=== PATIENT | male | born 1935 | race Caucasian/White ===

== ENCOUNTER 2016-08-13 21:02 | Observation (INO) ==
--- NOTE | 2016-08-13 21:34 | Emergency Department Note ---
Disposition Clinical Impression: General weakness Syncope Qualifiers: Syncope type: unspecified Qualified Code(s): R55 - Syncope and collapse Disposition: Admitted As Inpatient Condition: Good Referrals: NO,PCP [Primary Care Provider] - Forms: ED Satisfaction Letter Time of Disposition: 00:28 Weakness HPI - General Chief complaint: ED Weakness Stated complaint: increased weakness, fall Time Seen by Provider: 08/13/16 21:30 Source: patient Mode of arrival: ambulatory Limitations: no limitations Nursing Notes Reviewed: Yes Vital Signs Reviewed: Yes - History of Present Illness HPI Narrative: 81-year-old white male complaining of generalized weakness for the last 3 days. He was actually seen here on 08/11/16 by me for some abdominal discomfort. He was diagnosed with biliary colic. He states since being discharged she has just felt generally weak and been laying around. He denies dizziness. He has had no ongoing abdominal pain. He denies any chest pain. He states that today he has been incontinent of urine 3 times. He states he was in the bathroom and fell to the floor. He is not sure if he passed out, he does not remember falling. He denies any injuries from the fall. He states he was too weak to get up and had to have the neighbor's helping. Pt Subjective Complaint: generalized weakness/fatigue Onset (ago): day(s) (3) Duration: constant Location: generalized Migration: none Pain Severity: none Pain Scale: 0 Context: recent illness Associated symptoms: Reports: other (Incontinence of urine) - Related Data Home Medications Medication Instructions Recorded Confirmed Aspirin 81 mg PO DAILY 06/20/15 06/20/15 Metoprolol Tartrate 50 mg PO 06/20/15 Omeprazole [Omeprazole] 1 PO DAILY 06/20/15 Potassium Citrate [Urocit-K] 1 PO BID 06/20/15 Valsartan/Hydrochlorothiazide 1 PO DAILY 06/20/15 [Diovan Hct 160-25 mg Tablet] amLODIPine [Norvasc] 10 mg PO DAILY 06/20/15 08/11/16 metFORMIN [Glucophage] 500 mg PO BIDWM 06/20/15 08/11/16 Calcium Citrate-Vit D3 Tablet 1 PO BID 07/24/16 Previous Rx's Medication Instructions Recorded Dicyclomine [Bentyl] 10 - 20 mg PO QID PRN #30 capsule 08/11/16 Ondansetron ODT [Zofran ODT] 4 mg SL Q6HR PRN #8 tab.rapdis 08/11/16 Allergies Allergy/AdvReac Type Severity Reaction Status Date / Time No Known Allergies Allergy Verified 06/20/15 10:25 All systems ED: reviewed and negative except as stated. Constitutional: Denies: fever, chills Eyes: Denies: vision change ENT ED: Denies: ear pain, throat pain Cardiovascular: Denies: chest pain, palpitations Respiratory: Denies: cough, dyspnea Gastrointestinal: Denies: abdominal pain, nausea, vomiting, diarrhea Genitourinary: Denies: urgency, dysuria Musculoskeletal: Denies: back pain Neurological: Reports: weakness. Denies: headache, numbness, paresthesias Past Medical History - Past Medical History Medical history: Reports: diabetes, GERD, hyperlipidemia, hypertension, kidney stones Surgical history: Reports: other (Kidney stone extractions, tonsillectomy) Psychiatric history: Reports: no psych history - Social History Smoking Status: Never smoker Smokeless Tobacco Status: No Alcohol use: Reports: none Drug use: Reports: none Physical Exam - General Limitations: no limitations General appearance: alert, in no apparent distress - Head Head exam: atraumatic, normocephalic - Eye Eye exam: Present: PERRL, EOMI. Absent: scleral icterus, conjunctival injection - ENT ENT exam: normal oropharynx, mucous membranes moist, TM's normal bilaterally - Neck Neck exam: Present: normal inspection, full ROM, trachea midline. Absent: lymphadenopathy - Respiratory Respiratory exam: Present: normal lung sounds bilaterally. Absent: respiratory distress, wheezes - Cardiovascular Cardiovascular exam: Present: regular rate, normal rhythm, normal heart sounds - Abdominal Exam Abdominal exam: Present: soft, Non-Tender. Absent: organomegaly, mass - Extremities Exam Extremities exam: Present: normal inspection, full ROM, normal capillary refill. Absent: tenderness - Back Exam Back exam: Present: normal inspection. Absent: CVA tenderness (R), CVA tenderness (L) - Neurological Exam Neurological exam: Present: alert, oriented X3, CN II-XII intact, reflexes normal. Absent: motor sensory deficit - Psychiatric Psychiatric exam: Present: normal affect, normal mood - Skin Skin exam: Present: warm, dry, intact, normal color Course - Reevaluation(s) Reevaluation #1: Discussed with Dr. Steele. He accepts the patient for admission. Time: 00:27 Vital Signs Temperature 97.7 F 08/13/16 21:07 Pulse Rate 79 08/13/16 21:07 Respiratory Rate 18 08/13/16 21:07 Blood Pressure 127/74 08/13/16 21:07 O2 Sat by Pulse Oximetry 96 08/13/16 21:07 Temperature 97.7 F 08/13/16 22:09 Pulse Rate 76 08/13/16 22:45 Respiratory Rate 16 08/13/16 22:45 Blood Pressure 133/74 08/13/16 22:45 O2 Sat by Pulse Oximetry 96 08/13/16 22:45 Oxygen Delivery Oxygen Delivery Room Air Weakness - MDM Narrative Medical decision making narrative: Differential includes but is not limited to anemia, dehydration, hypokalemia, hyperkalemia, myocardial infarction, arrhythmia, CVA, urinary tract infection. Based on his history of sounds if he had a syncopal episode. The etiology of his syncope is not clear. The etiology of his generalized weakness is not clear. He has no focal findings. No acute findings on his head CT. There are no electrolyte abnormalities to explain his symptoms. No focus of infection to explain his symptoms. - Lab Data Result diagrams: 08/13/16 21:41 08/13/16 21:41 Lab Results 08/13/16 08/13/16 08/13/16 Range/Units 21:41 21:41 21:41 WBC 9.8 (4.3-11.1) K/mcL RBC 3.95 L (4.19-5.50) M/mcL Hgb 11.8 L (12.9-16.9) g/dL Hct 34.9 L (37.5-50.1) % MCV 88.4 (83.0-100.0) fL MCH 29.9 (28.0-33.3) pg MCHC 33.8 (31.6-35.5) g/dL RDW 13.2 (11.5-14.5) % Plt Count 212 (140-400) K/mcL MPV 9.5 (9.4-12.4) fL Immature Gran % 0.4 (0-4) % Seg Neutrophils % 74.1 % Lymphocytes % 11.0 % Monocytes % 14.4 % Eosinophils % 0.0 % Basophils % 0.1 % Neutrophils # 7.3 (1.6-8.9) K/mcL Lymphocytes # 1.1 (0.6-4.6) K/mcL Monocytes # 1.4 H (0.0-1.3) K/mcL Eosinophils # 0.0 (0.0-0.6) K/mcL Basophils # 0.0 (0.0-0.2) K/mcL PT 14.4 H (9.4-12.1) Seconds INR 1.3 VBG Lactic Acid (0.5-2.2) mmol/L Sodium 137 (136-145) mEq/L Potassium 3.5 (3.5-4.5) mEq/L Chloride 98 (98-109) mEq/L Carbon Dioxide 28 (19-29) mEq/L BUN 19 (8-26) mg/dL Creatinine 0.95 (0.72-1.25) mg/dL Est GFR ( Amer) > 60 (> 60) Est GFR (Non-Af Amer) > 60 (> 60) BUN/Creatinine Ratio 20 (6-26) Glucose 188 H (70-99) mg/dL Calculated Osmolality 291 (280-300) Calcium 9.1 (8.6-10.8) mg/dL Total Bilirubin 0.9 D (0.2-1.2) mg/dL AST 16 (5-34) Units/L ALT 16 (0-55) Units/L Alkaline Phosphatase 54 (38-126) Units/L Troponin I (0-0.03) ng/mL Serum Total Protein 6.9 (6.0-8.3) g/dL Albumin 3.0 L D (3.5-5.0) g/dL Globulin 3.9 H (2.4-3.5) g/dL Albumin/Globulin Ratio 0.8 L (1.1-2.2) Urine Color (Yellow) Urine Clarity (Clear) Urine pH (5.0-8.0) pH Units Ur Specific [place] (1.010-1.025) Urine Protein (Neg-Trace) mg/dL Urine Glucose (UA) (Normal) mg/dL Urine Ketones (Negative) mg/dL Urine Blood (Negative) Urine Nitrite (Negative) Urine Bilirubin (Negative) Urine Urobilinogen (Normal) mg/dL Ur Leukocyte Esterase (Negative) Urine Microscopic RBC (0-3) per hpf Urine Microscopic WBC (0-3) per hpf Ur Squamous Epith Cells (None-Few) per lpf Urine Bacteria (None-Few) per hpf Hyaline Casts (None-Few) per lpf Granular Casts (None Seen) per lpf Urine Mucus (Few) Ur Culture Indicated? (NO) 08/13/16 08/13/16 08/13/16 Range/Units 21:41 21:41 21:59 WBC (4.3-11.1) K/mcL RBC (4.19-5.50) M/mcL Hgb (12.9-16.9) g/dL Hct (37.5-50.1) % MCV (83.0-100.0) fL MCH (28.0-33.3) pg MCHC (31.6-35.5) g/dL RDW (11.5-14.5) % Plt Count (140-400) K/mcL MPV (9.4-12.4) fL Immature Gran % (0-4) % Seg Neutrophils % % Lymphocytes % % Monocytes % % Eosinophils % % Basophils % % Neutrophils # (1.6-8.9) K/mcL Lymphocytes # (0.6-4.6) K/mcL Monocytes # (0.0-1.3) K/mcL Eosinophils # (0.0-0.6) K/mcL Basophils # (0.0-0.2) K/mcL PT (9.4-12.1) Seconds INR VBG Lactic Acid 1.3 (0.5-2.2) mmol/L Sodium (136-145) mEq/L Potassium (3.5-4.5) mEq/L Chloride (98-109) mEq/L Carbon Dioxide (19-29) mEq/L BUN (8-26) mg/dL Creatinine (0.72-1.25) mg/dL Est GFR ( Amer) (> 60) Est GFR (Non-Af Amer) (> 60) BUN/Creatinine Ratio (6-26) Glucose (70-99) mg/dL Calculated Osmolality (280-300) Calcium (8.6-10.8) mg/dL Total Bilirubin (0.2-1.2) mg/dL AST (5-34) Units/L ALT (0-55) Units/L Alkaline Phosphatase (38-126) Units/L Troponin I 0.02 (0-0.03) ng/mL Serum Total Protein (6.0-8.3) g/dL Albumin (3.5-5.0) g/dL Globulin (2.4-3.5) g/dL Albumin/Globulin Ratio (1.1-2.2) Urine Color Yellow (Yellow) Urine Clarity Clear (Clear) Urine pH 5.5 (5.0-8.0) pH Units Ur Specific [place] 1.010 (1.010-1.025) Urine Protein 30 H (Neg-Trace) mg/dL Urine Glucose (UA) 100 H (Normal) mg/dL Urine Ketones Negative (Negative) mg/dL Urine Blood Trace-lysed H (Negative) Urine Nitrite Negative (Negative) Urine Bilirubin Negative (Negative) Urine Urobilinogen Normal (Normal) mg/dL Ur Leukocyte Esterase Negative (Negative) Urine Microscopic RBC 0-3 (0-3) per hpf Urine Microscopic WBC 0-3 (0-3) per hpf Ur Squamous Epith Cells Few (None-Few) per lpf Urine Bacteria Few (None-Few) per hpf Hyaline Casts Few (None-Few) per lpf Granular Casts Few H (None Seen) per lpf Urine Mucus Few (Few) Ur Culture Indicated? NO (NO)
[2016-08-13 21:48] LABS: Basophils % 0.1 %; Hematocrit 34.9 % (37.5-50.1); Hemoglobin 11.8 g/dL (12.9-16.9); Immature Granulocytes % 0.4 % (0-4); Lymphocytes # 1.1 K/mcL (0.6-4.6); Mean Corpuscular HGB Conc 33.8 g/dL (31.6-35.5); Mean Corpuscular Hemoglobin 29.9 pg (28.0-33.3); Mean Corpuscular Volume 88.4 fL (83.0-100.0); Mean Platelet Volume 9.5 fL (9.4-12.4); Monocytes # 1.4 K/mcL (0.0-1.3); Monocytes % 14.4 %; Neutrophils # 7.3 K/mcL (1.6-8.9); Platelet Count 212 K/mcL (140-400); Red Blood Count 3.95 M/mcL (4.19-5.50); Red Cell Distribution Width 13.2 % (11.5-14.5); Segmented Neutrophils % 74.1 %
[2016-08-13 21:53] LABS: INR 1.3; Prothrombin Time 14.4 Seconds (9.4-12.1)
[2016-08-13 22:05] LABS: Bilirubin,Urine Negative (Negative); Blood,Urine Trace-lysed (Negative); Clarity,Urine Clear (Clear); Color,Urine Yellow (Yellow); Glucose,Urine (UA) 100 mg/dL (Normal); Ketones,Urine Negative (Negative); Leukocyte Esterase,Urine Negative (Negative); Nitrite,Urine Negative (Negative); PH,Urine 5.5 pH Units (5.0-8.0); Protein,Urine 30 mg/dL (Neg-Trace); Urobilinogen,Urine Normal (Normal)
[2016-08-13 22:06] LABS: Alanine Aminotransferase 16 Units/L (0-55); Albumin/Globulin Ratio 0.8 (1.1-2.2); Alkaline Phosphatase 54 Units/L (38-126); Aspartate Amino Transferase 16 Units/L (5-34); BUN/Creatinine Ratio 20 (6-26); Bilirubin,Total 0.9 mg/dL (0.2-1.2); Blood Urea Nitrogen 19 mg/dL (8-26); Calcium 9.1 mg/dL (8.6-10.8); Carbon Dioxide 28 mEq/L (19-29); Chloride 98 mEq/L (98-109); Globulin 3.9 g/dL (2.4-3.5); Glucose 188 mg/dL (70-99); Osmolality,Calculated 291 (280-300); Potassium 3.5 mEq/L (3.5-4.5); Sodium 137 mEq/L (136-145); Total Protein 6.9 g/dL (6.0-8.3); eGFR For African Americans > 60 (> 60); eGFR For Non-African Americans > 60 (> 60)
[2016-08-13 22:14] LABS: Bacteria,Urine Few per hpf (None-Few); Granular Casts,Urine Few per lpf (None Seen); Hyaline Casts,Urine Few per lpf (None-Few); Mucus,Urine Few (Few); RBC,Urine 0-3 per hpf (0-3); Squamous Epithelial Cell,Urine Few per lpf (None-Few); WBC,Urine 0-3 per hpf (0-3)
[2016-08-14] MEDS ORDERED: Ibuprofen 200 MG TABLET PO PRN (02:08)
[2016-08-14] MEDS ORDERED: Naloxone 0.4 MG/ML INJ IVP PRN (02:08)
[2016-08-14] MEDS ORDERED: Ibuprofen 400 MG TABLET PO PRN (08:17)
[2016-08-14] MEDS ORDERED: Potassium Citrate 10 MEQ TABLET.ER PO SCH (09:00)
[2016-08-14] MEDS ORDERED: [UNRECOGNIZED DRUG - OTHER] PO SCH (09:00)
[2016-08-14] MEDS ORDERED: UBIDECARENONE 50 MG PO SCH (09:00)
[2016-08-14] MEDS ORDERED: amLODIPine 5 MG TABLET PO SCH (09:00)
[2016-08-14] MEDS ORDERED: hydroCHLOROthiazide 25 MG TABLET PO SCH ×2 (09:00→15:10)
[2016-08-14] MEDS: *HR* Metformin 500 MG TABLET PO SCH (09:49)
[2016-08-14] MEDS: Valsartan 160 MG TABLET PO SCH (09:49)
[2016-08-14] MEDS: Aspirin 81 MG TAB.CHEW PO SCH (09:50)
[2016-08-14] MEDS: Cholecalciferol (D-3) 1,000 UNIT TABLET PO SCH (11:29)
--- NOTE | 2016-08-14 15:15 | Internal Med History&Physical ---
Date of Encounter: 08/14/16 Time of Encounter: 14:40 Assessment and Plan (1) Syncope Current visit: Yes Status: Acute Etiology not obvious. Consider vasovagal from attempted bowel movement. We will continue telemetry monitoring. Qualifiers: Syncope type: unspecified Qualified Code(s): R55 - Syncope and collapse (2) Anemia Current visit: Yes Status: Acute We will order anemia testing in a.m. Qualifiers: Anemia type: unspecified type Qualified Code(s): D64.9 - Anemia, unspecified (3) General weakness Current visit: Yes Status: Acute Will hold amlodipine and recheck orthostatic vital signs in a.m. Will give IV fluids with supplemental potassium and recheck labs in a.m. (4) Hypertension Current visit: Yes Status: Chronic As above Qualifiers: Hypertension type: essential hypertension Qualified Code(s): I10 - Essential (primary) hypertension Internal Medicine - H&P: HPI Chief complaint: Syncope and fall Admitted From: Home Plans for Post Hospital Care: Home History of present illness: Mr. Sanchez is a 81 year old male who came to emergency room after he had an unwitnessed syncopal episode in the bathroom at home. He states he was sitting on the toilet and lost consciousness and fell to the floor. He did not injure himself. He states he was unconscious for only a few seconds. There was some loss of urinary incontinence. He was found by his who called her neighbor to help him off the floor. He was brought to emergency room and evaluated and admitted to [facility] for ongoing care needs. He denies previous syncopal episodes. He denies any sensation of lightheadedness dizziness tachycardia etc. prior to the fall. He does not have orthostatic symptoms on arising from a seated position. He has history of hypertension but denies [place] heart failure angina DVT or pulmonary embolus. His neurologic history is negative for strokes or seizures. He states approximately 6 months ago he had an episode where he felt he was "in a fog". The episode lasted only a few minutes and then resolved. He has had previous similar episodes like this over the past few years. Past Med Surg Social Fam HX - Past Medical History Medical history: diabetes, GERD, hyperlipidemia, hypertension, kidney stones Psychiatric history: no psych history - Past Surgical History Surgical History: other - Social History Smoking Status: Never smoker Smokeless Tobacco Status: No Alcohol use: none Drug use: none Internal Medicine - H&P: Meds Aspirin 81 mg PO DAILY 06/20/15 [History] Omeprazole [Omeprazole] 20 mg PO DAILY 06/20/15 [History] Potassium Citrate [Urocit-K] 10 mcg PO BID 06/20/15 [History] Valsartan/Hydrochlorothiazide [Diovan Hct 160-25 mg Tablet] 1 tab PO DAILY 06/19 [History] amLODIPine [Norvasc] 10 mg PO DAILY 06/20/15 [History] metFORMIN [Glucophage] 500 mg PO QAM 06/20/15 [History] Calcium Citrate-Vit D3 Tablet 1 tab PO BID 07/24/16 [History] Ibuprofen [Advil] 200 mg PO QAM PRN 08/14/16 [History] Ubidecarenone [Coq10] 50 mg PO QAM 08/14/16 [History] metFORMIN [Glucophage] 1,000 mg PO HS 08/14/16 [History] Allergies No Known Allergies Allergy (Verified 06/20/15 10:25) All Systems PM: A 10-system review of systems was performed and is negative for pertinent findings except as documented above in the HPI. Review of systems: Gen.: He states his weight has decreased approximately 9 pounds in the past few months, intentionally Cardiovascular: As per history of present illness Respiratory: He smoked for a few years in early adulthood. He denies chronic lung disease. GI: Denies disorders of his liver gallbladder or exocrine pancreas : He has had kidney stones in the past. He denies other kidney bladder prostate disorders Neurologic: He denies large distribution strokes or seizures Endocrine: He was diagnosed with DM 2 approximately 2011. He denies thyroid disease. He states he has hyperlipidemia but could not tolerate atorvastatin Hematology/oncology: Denies blood disorders cancers or anemia Psychiatric: He denies anxiety depression other mental health issues Musk skeletal: He has DJD but denies gout or other bone joint or muscle disorders. - Constitutional Vitals: Temp Pulse Resp BP Pulse Ox 98.3 F 77 17 119/69 97 08/14/16 14:38 08/14/16 14:38 08/14/16 14:38 08/14/16 14:38 08/14/16 14:38 Exam: Gen.: He is a well-developed well-nourished male who appears in no acute distress at present time. HEENT: Head is atraumatic and normocephalic. Eyes: EOMI. There is no scleral icterus. Mouth: Mucosa is moist. Neck: Supple and nontender. There is no thyromegaly or adenopathy noted. Heart: Regular without murmurs gallops or ectopics Lungs: No wheezes or crackles are heard. Abdomen: Soft and nontender. No masses or guarding are noted. Extremities: There is no cyanosis edema or clubbing noted. Dorsalis pedis and posterior tibial pulses are trace palpable bilaterally. Neurologic: Mental status: He is talkative and a good historian. Cranial nerves : Smile is symmetric. Forehead wrinkles bilaterally. Tongue protrudes midline. EOMI. Motor: There is no pronator drift. Cerebellar: Finger to nose is intact bilaterally. Skin: Warm and dry Internal Med - H&P Results - Labs CBC & Chem 7: 08/13/16 21:41 08/13/16 21:41
[2016-08-14] MEDS ORDERED: *HR* Metformin 500 MG TABLET PO SCH (17:00)
[2016-08-14] MEDS: 0.45 % Sodium Chloride w/KCl 20 MEQ/1,000 ML MLS IVC SCH (17:56)
[2016-08-15] MEDS ORDERED: Acetaminophen 325 MG TABLET PO PRN (01:01)
[2016-08-15] MEDS ORDERED: Azithromycin 500 MG in D5% in Water 250 ML IVPB ONE (02:00)
[2016-08-15 02:09] LABS: Hematocrit 32.9 % (37.5-50.1); Hemoglobin 11.3 g/dL (12.9-16.9); Immature Granulocytes % 0.7 % (0-4); Lymphocytes # 1.2 K/mcL (0.6-4.6); Lymphocytes % 11.5 %; Mean Corpuscular HGB Conc 34.3 g/dL (31.6-35.5); Mean Corpuscular Hemoglobin 29.8 pg (28.0-33.3); Mean Corpuscular Volume 86.8 fL (83.0-100.0); Mean Platelet Volume 10.8 fL (9.4-12.4); Monocytes # 1.1 K/mcL (0.0-1.3); Monocytes % 10.2 %; Neutrophils # 8.3 K/mcL (1.6-8.9); Platelet Count 215 K/mcL (140-400); Red Blood Count 3.79 M/mcL (4.19-5.50); Red Cell Distribution Width 13.4 % (11.5-14.5); Segmented Neutrophils % 77.6 %
[2016-08-15 02:28] LABS: BUN/Creatinine Ratio 25 (6-26); Blood Urea Nitrogen 20 mg/dL (8-26); Calcium 8.7 mg/dL (8.6-10.8); Carbon Dioxide 25 mEq/L (19-29); Chloride 99 mEq/L (98-109); Glucose 146 mg/dL (70-99); Magnesium 1.8 mg/dL (1.6-2.6); Osmolality,Calculated 287 (280-300); Potassium 3.3 mEq/L (3.5-4.5); Sodium 136 mEq/L (136-145); eGFR For African Americans > 60 (> 60); eGFR For Non-African Americans > 60 (> 60)
[2016-08-15] MEDS: Aspirin 81 MG TAB.CHEW PO SCH (09:23)
[2016-08-15] MEDS: Cholecalciferol (D-3) 1,000 UNIT TABLET PO SCH (09:23)
[2016-08-15] MEDS: Valsartan 160 MG TABLET PO SCH (09:23)
[2016-08-15] MEDS: *HR* Metformin 500 MG TABLET PO SCH (09:24)
[2016-08-15] MEDS: 0.45 % Sodium Chloride w/KCl 20 MEQ/1,000 ML MLS IVC SCH (09:32)
--- NOTE | 2016-08-15 09:42 | Discharge Summary ---
Date of Encounter: 08/15/16 Time of Encounter: 09:30 - Discharge Diagnosis (1) Syncope Priority: Primary Status: Acute Qualifiers: Syncope type: unspecified Qualified Code(s): R55 - Syncope and collapse (2) Anemia Priority: Secondary Status: Acute Qualifiers: Anemia type: unspecified type Qualified Code(s): D64.9 - Anemia, unspecified (3) General weakness Priority: Secondary Status: Acute (4) Hypertension Priority: Secondary Status: Chronic Qualifiers: Hypertension type: essential hypertension Qualified Code(s): I10 - Essential (primary) hypertension - Discharge Medications Prescriptions: Potassium Chloride 10 meq PO BID #20 tab.er.prt Home Medications: Aspirin 81 mg PO DAILY 06/20/15 [History] Omeprazole 20 mg PO DAILY 06/20/15 [History] Potassium Citrate [Urocit-K] 10 mcg PO BID 06/20/15 [History] Valsartan/Hydrochlorothiazide [Diovan Hct 160-25 mg Tablet] 1 tab PO DAILY 06/19 [History] metFORMIN [Glucophage] 500 mg PO QAM 06/20/15 [History] Calcium Citrate-Vit D3 Tablet 1 tab PO BID 07/24/16 [History] Ibuprofen [Advil] 200 mg PO QAM PRN 08/14/16 [History] Ubidecarenone [Coq10] 50 mg PO QAM 08/14/16 [History] metFORMIN [Glucophage] 1,000 mg PO HS 08/14/16 [History] Potassium Chloride 10 meq PO BID #20 tab.er.prt 08/15/16 [Rx] Allergies/Adverse Reactions: Allergies No Known Allergies Allergy (Verified 06/20/15 10:25) Date of admission: 08/14/16 01:36 Primary care physician: Jean Russo M.D. Consults: 08/14/16 03:18 Consult to Pastoral Services [CONS] Routine Comment: Patient states if they are making rounds. - Patient Status Disposition: Home, Self-Care Condition: Good Functional capacity at discharge: independent ambulation Overall status at discharge: patient is progressing back to baseline - Discharge Instructions Follow Up With: Jean Russo Jr, MD [Partnered Physician] - 1 week - Diet and Activity Activity: resume usual activities as tolerated Diet: advance to your usual diet Hospital course: Mr. Sanchez is a 81 year old male who came to emergency room after he had an unwitnessed syncopal episode in the bathroom at home. He states he was sitting on the toilet and lost consciousness and fell to the floor. He did not injure himself. He states he was unconscious for only a few seconds. There was some loss of urinary incontinence. He was found by his who called her neighbor to help him off the floor. He was brought to emergency room and evaluated and admitted to [facility] for ongoing care needs. Initial orders were written by the emergency room physician. I saw him on August 14 and performed a history and physical. He had no further syncopal or near syncopal episodes. Orthostatic vital signs showed blood pressure decreased from 163/79 lying to 133/77 standing. I held his Norvasc and this will continue to be withheld at discharge. His PCP can monitor his pressure and further adjust medications as needed. He had a fever spike to 102.3 the director of early childhood hours of August 15. Temperature returned to normal range and he felt stable for discharge home later the morning of August 15. I explained to him the etiology of his syncope at home was not determined with certainty but it could have been vasovagal since he admits he was straining to have a BM at the time of syncope. Recommended he use stool softener and other medications as needed to avoid straining. Withholding amlodipine may also lessen constipation. His potassium level was 3.3 on the day of discharge. He will continue potassium citrate as prescribed of the urologist but I also gave him KCl 10 mg tablets twice a day for additional potassium. His PCP can monitor this. Anemia testing was ordered with results pending at the time of discharge. He will be discharged home and follow with his PCP within one week. - Time Spent with Patient Total time spent providing and/or coordinating discharge services: - Constitutional Vitals: Temp Pulse Resp BP Pulse Ox 98.8 F 80 18 129/60 98 08/15/16 07:00 08/15/16 07:00 08/15/16 07:00 08/15/16 07:00 08/15/16 07:00
[2016-08-15 09:51] VITALS: BP 151/72
--- NOTE | 2016-08-15 11:13 | Physician Discharge Referral ---
Home Health/Hosp Referral Info Transfer to: Home Health Attending Provider: Cedric Provider in Charge Post Discharge: PCP (Jean Russo M.D.) - Diagnosis (1) Syncope Priority: Primary Status: Acute (2) Anemia Priority: Secondary Status: Acute (3) General weakness Priority: Secondary Status: Acute (4) Hypertension Priority: Secondary Status: Chronic - Respiratory Orders Smoking Cessation: Smoking cessation has been advised. For more information, call the [place] Tobacco Quit Line at 3-175-HVFH-NOW. - Diet/Nutrition Diet/Nutrition Orders: Regular - Activity Activity Orders: Ambulate - Services Needed Following services are medically necessary services: Nursing, Home Health Aide, Physical Therapy, Occupational Therapy - Transfer Medications Prescriptions: Potassium Chloride 10 meq PO BID #20 tab.er.prt Home Medications: Aspirin 81 mg PO DAILY 06/20/15 [History] Omeprazole 20 mg PO DAILY 06/20/15 [History] Potassium Citrate [Urocit-K] 10 mcg PO BID 06/20/15 [History] Valsartan/Hydrochlorothiazide [Diovan Hct 160-25 mg Tablet] 1 tab PO DAILY 06/19 [History] metFORMIN [Glucophage] 500 mg PO QAM 06/20/15 [History] Calcium Citrate-Vit D3 Tablet 1 tab PO BID 07/24/16 [History] Ibuprofen [Advil] 200 mg PO QAM PRN 08/14/16 [History] Ubidecarenone [Coq10] 50 mg PO QAM 08/14/16 [History] metFORMIN [Glucophage] 1,000 mg PO HS 08/14/16 [History] Potassium Chloride 10 meq PO BID #20 tab.er.prt 08/15/16 [Rx] Allergies/Adverse Reactions: Allergies No Known Allergies Allergy (Verified 06/20/15 10:25) Certification: Further, I certify that my clinical findings support that this patient is homebound (i.e. absences from home require considerable and taxing effort and are for medical reasons or confucianism services or infrequently or short duration when for other reasons) because: Homebound Reason: Leaving home requires considerable and taxing effort due to condition (Walker assistance needed for safe ambulation.) Attestation: My signature below is to certify that this patient is under my care and that I, or nurse practitioner, or a physician's housekeeper and laundry assistant working with me, has a face-to -face encounter with this patient.
--- NOTE | 2016-08-16 11:45 | Electrocardiograph Report ---
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
== END 2016-08-15 12:39 | disposition home or self-care (01) ==
LOC: INPPIK 21:02 → EMEROOPIK 21:02 → INPPIK 08-14 02:10
PROVIDERS: ADMIT Internal Medicine; ATTEND Internal Medicine